=== PATIENT | female | born 1965 | race African-American/Black ===

== ENCOUNTER → 2024-08-25 | Day surgery (SDC) | payer BC ==
[~2024-08-25] MED LIST: LIDOCAINE HCL 2% LOCAL INJ 5 ML SDV VIAL INJ ONE; MIDAZOLAM HCL 2 MG/2 ML VIAL ONE; MOUNJARO2.5 MG/0.5; PROPOFOL IV EMULSION 10 MG/ML 20 ML VIAL ONE; VITAMIN C100 MG PO; VITAMIN D PO
[2024-08-25 10:05] VITALS: BP 126/71; PULSE 76; RESP 17; O2SAT 98
[2024-08-25] MEDS: LACTATED RINGER'S 1,000 ML ONE (12:31)
== END | disposition home or self-care (01) ==
LOC: OR 07:30
PROVIDERS: ATTEND Internal Medicine Gastroenterology
DX: Z12.11 Encounter for screening for malignant neoplasm of colon (principal); K64.8 Other hemorrhoids; R73.03 Prediabetes; Z91.013 Allergy to seafood; Z79.85 Long-term (current) use of injectable non-insulin antidiabetic drugs; Z68.41 Body mass index [BMI] 40.0-44.9, adult
CPT/HCPCS: 45378; 93005; J2003; J2250; J2704; J7121